=== PATIENT | female | born 1985 | race African-American/Black ===

== ENCOUNTER 2016-10-15 14:53 | Emergency (ER) | payer MEDICAID ==
[~2016-10-15] VITALS: Ht 165.1 cm; Wt 60.0 kg
[2016-10-15 17:42] LABS: BASOPHILS % 0.8 % (0.0-2.0); EOSINOPHILS % 1.4 % (0.0-5.0); HEMATOCRIT. 36.5 % (36.0-48.0); HEMOGLOBIN. 12.1 g/dL (12.0-16.0); LYMPHOCYTES % 34.9 % (20.0-50.0); MEAN CORPUSCULAR HEMOGLOBIN 29.7 pg (28.0-32.0); MEAN CORPUSCULAR VOLUME 89.5 fL (81.0-99.0); MEAN PLATELET VOLUME 7.7 fl (7.4-10.4); MONOCYTES % 11.1 % (2.0-8.0); NEUTROPHILS % 51.8 % (40.0-76.0); PLATELET 303 x1000/uL (130-400); RED BLOOD CELL COUNT 4.08 mill/uL (4.2-5.4); RED CELL DISTRIBUTION WIDTH 13.6 % (11.6-14.6)
[2016-10-15 17:54] LABS: CARBON DIOXIDE 30 mEq/L (21-32); CHLORIDE 105 mEq/L (98-107)
[2016-10-15 18:23] LABS: CLARITY URINE CLEAR (CLEAR); COLOR URINE YELLOW (YELLOW); GLUCOSE URINE NEGATIVE (NEGATIVE); KETONES URINE TRACE (NEGATIVE); LEUKOCYTE ESTERASE URINE TRACE (NEGATIVE); NITRITE URINE NEGATIVE (NEGATIVE); OCCULT BLOOD URINE NEGATIVE (NEGATIVE); PROTEIN URINE 1+ (NEGATIVE); SPECIFIC GRAVITY URINE 1.028 (1.005-1.030)
[2016-10-15 18:54] VITALS: BP 111/72
== END 2016-10-15 19:00 | disposition left against medical advice (07) ==
LOC: ER 17:54
DX: G44.209 Tension-type headache, unspecified, not intractable (principal); F12.10 Cannabis abuse, uncomplicated; Z88.2 Allergy status to sulfonamides
CPT/HCPCS: 36415; 80053; 81001; 81025; 85025; 93005; 99285; Z7610